=== PATIENT | female | born 1975 | race Caucasian/White ===

== ENCOUNTER 2021-06-18 11:19 | Outpatient (CLI) | payer BC ==
[~2021-06-18] VITALS: Ht 162.6 cm; Wt 68.1 kg
[~2021-06-18 11:19] MED LIST: IBU600 MG PO; MASON NATURAL1200 MG PO; NORCO 325 MG-51 TAB PO; PRENATAL MVI PO; SYNTHROID 0.10.15 MG PO; SYNTHROID0.175 MG PO
[2021-06-18 11:42] VITALS: BP 96/61; PULSE 77; TEMP 99.2
[2021-06-18] MEDS ORDERED: ADVIL200 MG PO (11:44)
[2021-06-18 12:00] VITALS: BP 95/60; PULSE 72
[2021-06-18 12:30] VITALS: BP 93/59; PULSE 68
[2021-06-18 12:45] VITALS: BP 96/62; PULSE 75
[2021-06-18 13:00] VITALS: BP 99/65; PULSE 68
== END 2021-06-18 13:50 ==
LOC: EUO 11:19
DX: E78.5 Hyperlipidemia, unspecified (principal); E03.9 Hypothyroidism, unspecified; Z78.9 Other specified health status
CPT/HCPCS: Q0244

== ENCOUNTER → 2021-06-21 | Outpatient (CLI) | payer BC ==
[~2021-06-21] MED LIST changes: +ADVIL200 MG PO
== END ==
LOC: COL.RAD 09:25
DX: U07.1 COVID-19 (principal); J98.4 Other disorders of lung